=== PATIENT | female | born 1985 | race Caucasian/White ===

== ENCOUNTER 2017-05-20 04:35 | Inpatient (IN) | payer OTHER ==
[2017-05-20 06:10] LABS: Hematocrit 38 % (35-47); Hemoglobin 12.9 g/dl (12.0-16.0); Mean Corpuscular HGB Conc 34 g/dl (31-36); Mean Corpuscular Hemoglobin 31 pg (27-31); Mean Corpuscular Volume 91 fL (80-97); Mean Platelet Volume 8 um3 (7.4-10.4); Red Blood Count 4.19 10^6/ul (4.0-5.4); Red Cell Distribution Width 13 % (10.5-15); White Blood Count 6.8 10^3/ul (3.5-10.8)
[2017-05-20] MEDS ORDERED: OBEPIDURAL* 250 ML ONE (09:10)
[2017-05-20] MEDS ORDERED: EPHEDrine (Pressors)* 50 MG/ML VIAL IV PUSH PRN ×2 (10:04)
[2017-05-20] MEDS ORDERED: Phenylephrine IV* 40 MCG/ML 10 ML SYRINGE IV PUSH PRN ×2 (10:04)
[2017-05-20] MEDS ORDERED: Sodium Citrate/Citric Acid* 15 ML UDC PO PRN (10:04)
[2017-05-20] MEDS ORDERED: Famotidine TAB* 20 MG PO PRN (10:04)
[2017-05-20] MEDS ORDERED: OBEPIDURAL* 250 ML EPIDURAL SCH (11:00)
[2017-05-20] MEDS ORDERED: Glycerin ADULT SUPP PR PRN (14:13)
[2017-05-20] MEDS ORDERED: Witch Hazel PAD* JAR TOPICAL PRN (14:13)
[2017-05-20] MEDS ORDERED: Acetaminophen TAB* 325 MG PO PRN (14:13)
[2017-05-20] MEDS ORDERED: oxyCODONE/Acetamin 5/325 MG* TAB PO PRN (14:13)
[2017-05-20] MEDS ORDERED: Dibucaine 1% 28.35 GM TUBE PR PRN (14:13)
[2017-05-20] MEDS: Ibuprofen TAB* 600 MG PO PRN ×2 (15:26→21:12)
[2017-05-20] MEDS: Docusate CAP* 100 MG PO SCH (21:12)
[2017-05-21] MEDS: Ibuprofen TAB* 600 MG PO PRN ×2 (05:44→12:38)
[2017-05-21 08:18] VITALS: BP 129/89
[2017-05-21] MEDS: Docusate CAP* 100 MG PO SCH (08:39)
[2017-05-21] MEDS ORDERED: Tetan/Diph/Pertus SYR(Tdap)* 0.5 ML SYR(BOOSTRIX) use SYR IM ONE (09:00)
[2017-05-21] MEDS ORDERED: Ferrous Gluconate TAB* 324 MG TAB PO SCH (09:00)
[2017-05-21 09:17] LABS: Hematocrit 37 % (35-47); Hemoglobin 12.2 g/dl (12.0-16.0); Mean Corpuscular HGB Conc 34 g/dl (31-36); Mean Corpuscular Hemoglobin 31 pg (27-31); Mean Corpuscular Volume 92 fL (80-97); Mean Platelet Volume 8 um3 (7.4-10.4); Red Blood Count 3.96 10^6/ul (4.0-5.4); Red Cell Distribution Width 13 % (10.5-15); White Blood Count 7.6 10^3/ul (3.5-10.8)
== END 2017-05-21 15:03 | disposition home or self-care (01) | DRG 775 ==
LOC: MCHOBOUT 04:35 → MCHOB 05:27
PROVIDERS: ADMIT Midwife; ATTEND Midwife
PROC: 10E0XZZ Delivery of Products of Conception, External Approach (ICD-10-PCS; principal; 2017-05-20)
PROC: 10907ZC Drainage of Amniotic Fluid, Therapeutic from Products of Conception, Via Natural or Artificial Opening (ICD-10-PCS; 2017-05-20)
DX: O80 Encounter for full-term uncomplicated delivery (principal); Z37.0 Single live birth; Z3A.39 39 weeks gestation of pregnancy
CPT/HCPCS: 36415; 85025; 85027; 86850; 86900; 86901; A9270-GY